=== PATIENT | male | born 2000 | race Caucasian/White ===

== ENCOUNTER 2023-04-08 09:26 | Emergency (ER) | payer OTHER ==
[~2023-04-08] VITALS: Ht 177.8 cm; Wt 91.5 kg
[2023-04-08 09:27] VITALS: BP 133/77; TEMP 96.9; O2SAT 99
[2023-04-08] MEDS ORDERED: CIPR7.5D5 AS (11:52)
[2023-04-08] MEDS ORDERED: AMOX875T2 PO (11:52)
== END 2023-04-08 12:01 | disposition home or self-care (01) ==
LOC: M ED 09:26
DX: H66.92 Otitis media, unspecified, left ear (principal); H62.42 Otitis externa in other diseases classified elsewhere, left ear